=== PATIENT | female | born 1990 | race Caucasian/White ===

== ENCOUNTER 2017-04-17 16:26 | Emergency (ER) | payer OTHER ==
--- NOTE | 2017-04-17 17:40 | ER Document Report ---
ED Medical Screen (RME) - General Chief Complaint: Post Surgical Pain Stated Complaint: ABDOMINAL PAIN Time Seen by Provider: 04/17/17 17:37 Mode of Arrival: Ambulatory Information source: Patient Notes: 27-year-old female history of endometriosis status post intravaginal trigger injections for the endometriosis a few days ago ([facility]: Dr. Duran [phone]). Since the injections, the patient has had persistently worsening lower abdominal pain and vaginal swelling. She was told by the surgeons to come to into the emergency room for evaluation. The concerns that the surgeon had voiced to the patient was that it could potentially be a surgical infection or a local allergy to the injected medicine. TRAVEL OUTSIDE OF THE [place] IN LAST 30 DAYS: No - Related Data Allergies/Adverse Reactions: tramadol Allergy (Verified 04/17/17 16:30) red dye 40 Allergy (Uncoded 04/17/17 16:30) Past Medical History - Social History Chew tobacco use (# tins/day): No Frequency of alcohol use: None Drug Abuse: None Renal/ Medical History: Denies: Hx Peritoneal Dialysis Past Surgical History: Reports: Hx Gynecologic Surgery - trigger point injections with inner pelvic exam Physical Exam - Vital signs Vitals: Temp Pulse Resp BP Pulse Ox 98.0 F 83 16 115/82 100 04/17/17 16:32 04/17/17 16:32 04/17/17 16:32 04/17/17 16:32 04/17/17 16:32 Course - Vital Signs Vital signs: Temp Pulse Resp BP Pulse Ox 98.0 F 83 16 115/82 100 04/17/17 16:32 04/17/17 16:32 04/17/17 16:32 04/17/17 16:32 04/17/17 16:32
[2017-04-17] MEDS ORDERED: HYDROMORPHONE HCL INJ/PF 2 MG/ML AMPULE IV ONE (17:41)
[2017-04-17] MEDS ORDERED: ONDANSETRON HCL INJ/PF 4 MG/2 ML SDV IV ONE (17:41)
[2017-04-17 18:04] LABS: ABSOLUTE LYMPHOCYTES (AUTO) 2.4 10^3/uL (0.5-4.7); ABSOLUTE MONOCYTES (AUTO) 0.3 10^3/uL (0.1-1.4); ABSOLUTE NEUT (AUTO) 2.7 10^3/uL (1.7-8.2); BASOPHILS % (AUTO) 0.7 % (0-2); EOSINOPHILS % (AUTO) 0.7 % (0-6); HEMOGLOBIN 13.9 g/dL (12.0-15.5); LYMPHOCYTES % (AUTO) 43.5 % (13-45); MEAN CORPUSCULAR HEMOGLOBIN 31.9 pg (27.0-33.4); MEAN CORPUSCULAR HGB CONC 34.7 g/dL (32.0-36.0); MEAN CORPUSCULAR VOLUME 92 fl (80-97); MONOCYTES % (AUTO) 6.1 % (3-13); PLATELET COUNT 192 10^3/uL (150-450); RED BLOOD COUNT 4.35 10^6/uL (3.72-5.28); RED CELL DISTRIBUTION WIDTH 13.4 % (11.5-14.0); TOTAL CELLS COUNTED % (AUTO) 100 %; WHITE BLOOD COUNT 5.4 10^3/uL (4.0-10.5)
[2017-04-17 18:15] LABS: ALANINE AMINOTRANSFERASE 28 U/L (9-52); ALBUMIN 5.2 g/dL (3.5-5.0); ALKALINE PHOSPHATASE 54 U/L (38-126); ANION GAP 12 (5-19); ASPARTATE AMINO TRANSFERASE 20 U/L (14-36); BILIRUBIN,DIRECT 0.1 mg/dL (0.0-0.4); BILIRUBIN,TOTAL 0.3 mg/dL (0.2-1.3); BLOOD UREA NITROGEN 10 mg/dL (7-20); CALCIUM 9.9 mg/dL (8.4-10.2); CARBON DIOXIDE 26 mmol/L (22-30); CHLORIDE 102 mmol/L (98-107); GLUCOSE 92 mg/dL (75-110); POTASSIUM 4.1 mmol/L (3.6-5.0); SODIUM 139.7 mmol/L (137-145); TOTAL PROTEIN 7.8 g/dL (6.3-8.2)
[2017-04-17] MEDS ORDERED: PREDNISONE 20 MG TABLET PO ONE (19:14)
[2017-04-17] MEDS ORDERED: CETIRIZINE 10 MG TABLET PO ONE (19:15)
--- NOTE | 2017-04-17 19:16 | ER Document Report ---
ED General - General Chief Complaint: Post Surgical Pain Stated Complaint: ABDOMINAL PAIN Time Seen by Provider: 04/17/17 17:37 Mode of Arrival: Ambulatory Notes: Patient is a 27-year-old female with a past medical history of intermittent and chronic pelvic pain who presents with 3 days of progressively worsening vaginal pain and swelling after having a trigger point injection procedure performed at [facility]. Patient reports that immediately upon waking up from the procedure she noted "it did not feel right down there". She notes that she had a sensation of fullness, burning and aching is only worsened since that time. She has been using vaginal diazepam and Flexeril without any improvement of her pain. Touching the area worsens the pain. She contacted her providers at [facility] who recommended she come to the emergency department to be evaluated with a speculum exam. They were concerned about a possible localized reaction to the medication versus a possible infection. She has not had any fever, vomiting or constitutional symptoms. No vaginal bleeding or discharge. She does have an IUD in place. TRAVEL OUTSIDE OF THE [place] IN LAST 30 DAYS: No - Related Data Allergies/Adverse Reactions: tramadol Allergy (Verified 04/17/17 16:30) red dye 40 Allergy (Uncoded 04/17/17 16:30) Past Medical History - General Information source: Patient - Social History Smoking Status: Never Smoker Chew tobacco use (# tins/day): No Frequency of alcohol use: None Drug Abuse: None Lives with: Family Family History: Reviewed & Not Pertinent Patient has suicidal ideation: No Patient has homicidal ideation: No Renal/ Medical History: Denies: Hx Peritoneal Dialysis Past Surgical History: Reports: Hx Gynecologic Surgery - trigger point injections with inner pelvic exam Review of Systems - Review of Systems Notes: Constitutional: Negative for fever. HENT: Negative for sore throat. Eyes: Negative for visual changes. Cardiovascular: Negative for chest pain. Respiratory: Negative for shortness of breath. Gastrointestinal: Positive for lower abdominal pain Genitourinary: Positive for vaginal pain Musculoskeletal: Negative for back pain. Skin: Negative for rash. Neurological: Negative for headaches, weakness or numbness. 10 point ROS negative except as marked above and in HPI. Physical Exam - Vital signs Vitals: Temp Pulse Resp BP Pulse Ox 98.0 F 83 16 115/82 100 04/17/17 16:32 04/17/17 16:32 04/17/17 16:32 04/17/17 16:32 04/17/17 16:32 Interpretation: Normal Notes: PHYSICAL EXAMINATION: GENERAL: Well-appearing, well-nourished and in no acute distress. HEAD: Atraumatic, normocephalic. EYES: Pupils equal round and reactive to light, extraocular movements intact, sclera anicteric, conjunctiva are normal. ENT: nares patent, oropharynx clear without exudates. Moist mucous membranes. NECK: Normal range of motion, supple without lymphadenopathy LUNGS: Breath sounds clear to auscultation bilaterally and equal. No wheezes rales or rhonchi. HEART: Regular rate and rhythm without murmurs ABDOMEN: Soft, nontender, normoactive bowel sounds. No guarding, no rebound. No masses appreciated. : Speculum examination unremarkable without any areas of erythema, swelling or discharge noted on internal vaginal exam. Cervix without any lesions. IUD strings in appropriate position. No cervical motion tenderness. Mild suprapubic and bilateral adnexal tenderness to palpation. EXTREMITIES: Normal range of motion, no pitting or edema. No cyanosis. NEUROLOGICAL: No focal neurological deficits. Moves all extremities spontaneously and on command. PSYCH: Normal mood, normal affect. SKIN: Warm, Dry, normal turgor, no rashes or lesions noted. Course - Re-evaluation Re-evalutation: 04/17/17 19:11 Patient presents with increasing vaginal pain and lower abdominal pain in the setting of trigger point injections for chronic pelvic floor pain. Pelvic examination is completely unremarkable without any areas of erythema, drainage or appreciable swelling. Abdominal exam is likewise benign with the exception of mild bilateral adnexal and subpubic abdominal tenderness. Primary concern was for possible allergic reaction versus an infectious etiology. Infection seems extremely unlikely given the absence of fever, tachycardia, leukocytosis, or any evidence of areas of infection on pelvic examination. A localized reaction is also a consideration although there is no notable erythema to the affected areas. I do not suspect any alternative pathology given clinical history. Will trial a course of steroids and antihistamines, recommend close outpatient follow-up with the patient's primary specialist who is seen her for this chronic issue. At this time will discharge with return precautions and follow-up recommendations. Verbal discharge instructions given a the bedside and opportunity for questions given. Medication warnings reviewed. Patient is in agreement with this plan and has verbalized understanding of return precautions and the need for specialist follow-up in the next 24-72 hours. - Vital Signs Vital signs: Temp Pulse Resp BP Pulse Ox 97.8 F 61 18 105/79 99 04/17/17 19:56 04/17/17 19:56 04/17/17 19:56 04/17/17 19:56 04/17/17 19:56 - Laboratory Result Diagrams: 04/17/17 17:50 04/17/17 17:50 Laboratory results interpreted by me: 04/17/17 17:50 Albumin 5.2 H Discharge - Discharge Clinical Impression: Vaginal pain, Lower abdominal pain Postoperative complication Qualifiers: Surgical complication system/body Area: genitourinary Surgical complication type: unspecified Procedure type: genitourinary Qualified Code(s): N99.89 - Other postprocedural complications and disorders of genitourinary system Condition: Good Disposition: HOME, SELF-CARE Additional Instructions: That your pelvic exam is reassuring today without any areas of redness, drainage or localized increased swelling. Your blood work is also completely normal without any evidence of an elevated white blood cell count. I do not suspect an acute infection based on your exam, labs and history. A localized reaction to the trigger point injection material is of concern. You are being started on a five-day course of steroids and she takes cetirizine 10 mg twice daily which can be purchased directly over the counter. Return if you develop fever, worsening pain, vaginal bleeding, increasing vaginal discharge, or any other symptoms that are concerning to you. Please follow-up with your specialist at your earliest ability. Prescriptions: Prednisone [Deltasone 20 mg Tablet] 3 tab PO DAILY 5 Days tablet
[2017-04-17] MEDS ORDERED: PREDNISONE 20 MG TABLET ONE (19:30)
[2017-04-17 20:03] VITALS: BP 105/79
== END 2017-04-17 20:03 | disposition home or self-care (01) ==
LOC: ER 16:26
DX: N99.89 Other postprocedural complications and disorders of genitourinary system (principal); Y84.8 Other medical procedures as the cause of abnormal reaction of the patient, or of later complication, without mention of misadventure at the time of the procedure; R10.2 Pelvic and perineal pain; G89.29 Other chronic pain; Z97.5 Presence of (intrauterine) contraceptive device; Z88.5 Allergy status to narcotic agent; Z91.048 Other nonmedicinal substance allergy status
CPT/HCPCS: 99283; 96374; 36415; 85025; 80053; J1170; J7512

== ENCOUNTER → 2018-06-08 | Outpatient (CLI) | payer OTHER | LOC: LAB 14:47 | PROVIDERS: ATTEND Internal Medicine | DX: R89.7 Abnormal histological findings in specimens from other organs, systems and tissues (principal) | CPT/HCPCS: 36415 ==